=== PATIENT | female | born 1965 | race Caucasian/White ===

== ENCOUNTER 2024-08-23 16:51 | Outpatient (OUT) | payer MEDICARE, SELFPAY ==
--- NOTE | 2024-08-23 16:54 | US_ITS ---
The [address] [address] Patient Name: CARLOS RAMIREZ MRN: [id number] date: 1965 Sex: F Assigned Patient Location: US Current Patient Location: US Accession/Order Number: [id number] Exam Date: 08/23/2024 22:21 Report Date: 08/23/2024 22:32 At the request of: KASIA LOJA Procedure: US thyroid THYROID ULTRASOUND CLINICAL DATA: Elevated T4. Dizziness. COMPARISON: CT chest 10/28/2018 The right thyroid lobe measures 6.1 x 1.8 x 1.9 cm. The left lobe measures 4.4 x 1.5 x 1.6 cm. The isthmus measures 2 - 3 mm. Multiple nodules are seen bilaterally. Some are colloid cysts. At the superior pole on the right, there is a heterogeneous, slightly hyperechoic nodule measuring 7 x 5 x 6 mm (TI-RADS 4). At the inferior pole on the right, there is a hypoechoic nodule measuring 10 x 8 x 8 mm (TI-RADS 4). On the left at the superior pole, there is a small mixed echogenicity nodule measuring 6 x 4 x 5 mm (TI-RADS 3). At the superior pole on that side there is another small hypoechoic nodule measuring 4 x 2 x 4 mm (TI-RADS 4). US/US thyroid IMPRESSION: MULTIPLE SMALL COLLOID CYSTS AND SOLID NODULES, DESCRIBED. FOLLOW-UP ULTRASOUND OF THE SOLID NODULES IN ONE YEAR IS SUGGESTED DUE TO SMALL SIZE. Impression dictated by: Margot Duran M.D.08/23/2024 10:32 PM Dictation Location[facility] Electron[facility] authenticated by: [id number] Y Date: 08/23/2024 22:32
== END 2024-08-23 16:52 | disposition home or self-care (01) ==
LOC: US 16:52
PROVIDERS: PCP Nurse Practitioner; Visit Provider Nurse Practitioner
DX: R94.6 Abnormal results of thyroid function studies (principal); R42 Dizziness and giddiness; E04.2 Nontoxic multinodular goiter
CPT/HCPCS: 76536

== ENCOUNTER 2024-09-08 13:20 | Outpatient (OUT) | payer MEDICARE, SELFPAY ==
--- NOTE | 2024-09-08 13:39 | MR_ITS ---
The [address] [address] Patient Name: CARLOS RAMIREZ MRN: [id number] date: 1965 Sex: F Assigned Patient Location: LAB Current Patient Location: LAB Accession/Order Number: [id number] Exam Date: 09/08/2024 18:24 Report Date: 09/08/2024 18:27 At the request of: KASIA LOJA Procedure: MR head/brain wo/w con MRI brain with and without IV contrast. Reason for exam: New onset headache. Vertigo. COMPARISON: None. TECHNIQUE: Multisequence, multiplanar imaging of the brain was performed before and after the use of IV contrast. FINDINGS: No evidence of restriction diffusion is an diffusion-weighted imaging. No evidence of blood products are seen on T2 Star imaging. Cortical atrophy with mild chronic microvascular ischemic changes are noted. Posterior fossa appears unremarkable. Intraorbital contents appear grossly unremarkable. No significant paranasal sinus disease is seen. Midline structures appear grossly unremarkable. Postcontrast imaging demonstrates no abnormal enhancement. MR/MR head/brain wo/w con IMPRESSION: No acute process. No abnormal enhancement. Cortical atrophy with mild chronic microvascular ischemic changes. Impression dictated by: Justin Puga Jr., D.O.09/08/2024 6:27 PM Dictation Location: [place] [address] Electronically authenticated by: [id number] Y Date: 09/08/2024 18:27
[2024-09-08 13:44] LABS: Estimated GFR (African America >60 (>=60 mL/min/1.73m^2); Estimated GFR (Non-African Ame 56 (>=60 mL/min/1.73m^2)
== END 2024-09-08 13:21 | disposition home or self-care (01) ==
LOC: LAB 13:20
PROVIDERS: PCP Nurse Practitioner; Visit Provider Nurse Practitioner
DX: R51.9 Headache, unspecified (principal); R42 Dizziness and giddiness; Z80.8 Family history of malignant neoplasm of other organs or systems
CPT/HCPCS: 36415; 70553; 82565; A9575